=== PATIENT | male | born 1975 | race Caucasian/White ===

== ENCOUNTER → 2019-03-08 | Outpatient (REF) | payer OTHER | LOC: M LAB REF 12:42 | PROVIDERS: ATTEND Physician Assistant Medical | DX: J02.9 Acute pharyngitis, unspecified (principal) ==

== ENCOUNTER → 2020-03-04 | Outpatient (CLI) | payer OTHER ==
[~2020-03-04] MED LIST: METHACHOLINE KIT (J7674) INH ONE
--- NOTE | 2020-03-04 08:35 | PFTRPT ---
Height: 72.00 Inches Weight: 220.00 Lbs BSA: 2.22 Diagnosis: J45.990 DATE: 03/04/2020 ORDERED BY: Dr. Alex. QUALITY: Study of excellent technical quality. PROCEDURE: Under protocol, methacholine was administered. At a dose of 2.5 mg or 13.875 CDUs a 29% decline in the FEV1 was noted. PC of 0.42 is significant. Flow rates did return to baseline post bronchodilator administration. IMPRESSION: Positive methacholine challenge study. MTDD
== END ==
LOC: M CARPUL 07:45
PROVIDERS: ATTEND Internal Medicine
DX: J45.990 Exercise induced bronchospasm (principal)

== ENCOUNTER → 2020-04-26 | Outpatient (CLI) | payer OTHER ==
[~2020-04-26] MED LIST changes: +CITA20TA7; -METHACHOLINE KIT (J7674) INH ONE; +PROAAER10; +RABE1TAB4
== END ==
LOC: M LABSMTC 10:36
PROVIDERS: ATTEND Anesthesiology
DX: Z01.812 Encounter for preprocedural laboratory examination (principal); Z20.822 Contact with and (suspected) exposure to COVID-19

== ENCOUNTER 2020-05-01 07:05 | Day surgery (SDC) | payer OTHER ==
[~2020-05-01] VITALS: Ht 185.4 cm; Wt 104.3 kg
[~2020-05-01 07:05] MED LIST changes: +LIDOCAINE 2% 100MG/5ML SDV (FOR ANES.) As Ordered ONE; +NS 1,000 ML IV ONE; +RABE1TAB; -RABE1TAB4; +propofoL 200 MG/20 ML VIAL As Ordered ONE
--- OUTSIDE RECORDS SUMMARY | 2020-05-01 07:09 | CCD | Continuity of Care Document ---
Author Sanket Haro M.D. Organization Unknown Address [address] [place] [id number] Phone [phone] Care Team Providers Care Automatic Stacker Name Role Phone Eva Alex DO AUTM [phone] Problems Active Problems Provider Date Gastroesophageal reflux disease Diego Delaney M.D. Ons et: 04/16/2020 Social History Type Date Description Comments Sex Unknown ETOH Use Occasionally Tobacco Use Start: Unknown Patient has never smoked Allergies, Adverse Reactions, Alerts Description No Known Drug Allergies Medications Active Medications SIG Qnty Indications Ordering Provide r Date Rabeprazole Sodium 20mg Tablets DR Take One Tablet By Mouth Every Day Unknown Citalopram Hydrobromide 20mg Table ts Take One Tablet By Mouth Every Day Unknown Immunizations Description No Information Available Vital Signs Date Vital Result Comment 04/16/2020 3:15pm Height 72 inches 6'0" Weight 234.00 lb BP Systolic 135 mmHg BP Diastolic 89 mmHg Heart Rate 66 /min BMI (Body Mass Index) 31.7 kg/m2 Weight 106.142 kg Body Temperature 97.0 F Results Description No Information Available Procedures Description No Information Available Medical Devices Description No Information Available Encounters Type Date Location Provider Dx Diagnosis Office Visit 04/16/2020 3:00p Main Office Diego Delaney M.D. R 12 Heartburn Assessments Date Code Description Provider 04/16/2020 R12 Heartburn Diego wolfe M.D. Plan of Treatment Future Appointment(s):* 04/24/2020 6:45 am - [facility] at Main Office * 05/01/2020 9:00 am - Diego Delaney M.D. at Main Office 04/16/2020 - Diego Delaney M.D.* R12 Heartburn* Comments:* 44 yo wm who presents for a chronic history of heartburn. No dysphagia. Pt is on Acidphex 20 mgs po qd. No c/o abdominal pain, weight loss, change in bowel habits, or rectal bleeding. No family h/o colon cancer. No h/o chest pain, or sob. Plan:1. Egd + biopsies.2. Informed consent. Functional Status Description No Information Available Mental Status Description No Information Available Referrals Description No Information Available
--- OUTSIDE RECORDS SUMMARY | 2020-05-01 07:09 | CCD | Continuity of Care Document ---
Author Author Sanket DELANEY M.D. Organization Unknown Address [address] [place] [id number] Phone [phone] Care Team Providers Care Dowel Inspector Name Role Phone Eva Alex DO AUTM [phone] Problems Active Problems Provider Date Gastroesophageal reflux [...] Medical Devices Description No Information Available Encounters Description No Information Available Assessments Date Code Description Provider 04/16/2020 R12 [...]
--- OUTSIDE RECORDS SUMMARY | 2020-05-01 07:10 | CCD ---
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 [employer] Name Role Phone Abi, Eva DO Unavailable Unavailable Abi, Eva DO Unavailable Unavailable Abi, Eva DO Unavailable Unavailable Abi, Eva DO Unavailable Unavailable Abi, Eva DO Unavailable Unavailable Abi, Eva DO Unavailable Unavailable Abi, Eva DO Unavailable Unavailable Abi, Eva DO Unavailable Unavailable Abi, Eva DO Unavailable Unavailable Abi, Eva DO Unavailable Unavailable Abi, Eva DO Unavailable Unavailable Abi, Eva DO Unavailable Unavailable Abi, Eva DO Unavailable Unavailable Abi, Eva DO Unavailable Unavailable Abi, Eva DO Unavailable Unavailable Abi, Eva DO Unavailable Unavailable Abi, Eva DO Unavailable Unavailable Abi, Eva DO Unavailable Unavailable Abi, Eva DO Unavailable Unavailable Abi, Eva DO Unavailable Unavailable Abi, Eva DO Unavailable Unavailable Abi, Eva DO Unavailable Unavailable Abi, Eva DO Unavailable Unavailable Abi, Eva DO Unavailable Unavailable Abi, Eva DO Unavailable Unavailable Abi, Eva DO Unavailable Unavailable Abi, Eva DO Unavailable Unavailable Abi, Eva DO Unavailable Unavailable Abi, Eva DO Unavailable Unavailable Abi, Eva DO Unavailable Unavailable Abi, Eva DO Unavailable Unavailable Abi, Eva DO Unavailable Unavailable Abi, Eva DO Unavailable Unavailable Abi, Eva DO Unavailable Unavailable Abi, Eva DO Unavailable Unavailable Abi, Eva DO Unavailable Unavailable Abi, Eva DO Unavailable Unavailable Abi, Eva DO Unavailable Unavailable Abi, Eva DO Unavailable Unavailable Abi, Eva DO Unavailable Unavailable Abi, Eva DO Unavailable Unavailable Abi, Eva DO Unavailable Unavailable Abi, Eva DO Unavailable Unavailable Abi, Eva DO Unavailable Unavailable Abi, Eva DO Unavailable Unavailable Abi, Eva DO Unavailable Unavailable Abi, Eva DO Unavailable Unavailable Abi, Eva DO Unavailable Unavailable Abi, Eva DO Unavailable Unavailable Abi, Eva DO Unavailable Unavailable Abi, Eva DO Unavailable Unavailable Abi, Eva DO Unavailable Unavailable Abi, Eva DO Unavailable Unavailable Abi, Eva DO Unavailable Unavailable Abi, Eva DO Unavailable Unavailable Abi, Eva DO Unavailable Unavailable Abi, Eva DO Unavailable Unavailable Abi, Eva DO Unavailable Unavailable Abi, Eva DO Unavailable Unavailable Abi, Eva DO Unavailable Unavailable Abi, Eva DO Unavailable Unavailable Abi, Eva DO Unavailable Unavailable Abi, Eva DO Unavailable Unavailable Abi, Eva DO Unavailable Unavailable Abi, Eva DO Unavailable Unavailable Abi, Eva DO Unavailable Unavailable Abi, Eva DO Unavailable Unavailable Abi, Eva DO Unavailable Unavailable Abi, Eva DO Unavailable Unavailable Abi, Eva DO Unavailable Unavailable Abi, Eva DO Unavailable Unavailable Abi, Eva DO Unavailable Unavailable Sundar Delaney MD Unavailable Unavailable Sundar Delaney MD Unavailable Unavailable Sundar Delaney MD Unavailable Unavailable Sundar Delaney MD Unavailable Unavailable Sundar Delaney MD Unavailable Unavailable Sundar Delaney MD Unavailable Unavailable Sundar Delaney MD Unavailable Unavailable Sundar Delaney MD Unavailable Unavailable Sundar Delaney MD Unavailable Unavailable Sundar Delaney MD Unavailable Unavailable Sundar Delaney MD Unavailable Unavailable Sundar Delaney MD Unavailable Unavailable RhettSundar MD Unavailable Unavailable Rhett S Diego QUILES Unavailable Unavailable Rhett S Diego QUILES Unavailable Unavailable Rhett S Diego QUILES Unavailable Unavailable Rhett S Diego QUILES Unavailable Unavailable Rhett S Diego QUILES Unavailable Unavailable Rhett S Diego QUILES Unavailable Unavailable RhettSundar MD Unavailable Unavailable Rhett S Diego QUILES Unavailable Unavailable RhettSundar MD Unavailable Unavailable RhettSundar MD Unavailable Unavailable RhettSundar MD Unavailable Unavailable Sundar Delaney MD Unavailable Unavailable RhettSundar MD Unavailable Unavailable RhettSundar MD Unavailable Unavailable Rhett S Diego QUILES Unavailable Unavailable Rhett S Diego MD Unavailable Unavailable Rhett, S Diego MD Unavailable Unavailable Rhett, S Diego MD Unavailable Unavailable Rhett, S Diego MD Unavailable Unavailable Rhett, S Diego MD Unavailable Unavailable Rhett, S Diego MD Unavailable Unavailable Rhett, S Diego MD Unavailable Unavailable Rhett, S Diego MD Unavailable Unavailable Rhett, S Diego MD Unavailable Unavailable Rhett, S Diego MD Unavailable Unavailable Rhett, S Diego MD Unavailable Unavailable Rhett, S Diego MD Unavailable Unavailable Rhett, S Diego MD Unavailable Unavailable Rhett, S Diego MD Unavailable Unavailable Rhett, S Diego MD Unavailable Unavailable Rhett, S Diego MD Unavailable Unavailable Rhett, S Diego MD Unavailable Unavailable Rhett, S Diego MD Unavailable Unavailable Rhett, S Diego MD Unavailable Unavailable Rhett, S Diego MD Unavailable Unavailable Spearance, J Adam PA Unavailable Unavailable Spearance, J Adam PA Unavailable Unavailable Spearance, J Adam PA Unavailable Unavailable Spearance, J Adam PA Unavailable Unavailable Spearance, J Adam PA Unavailable Unavailable Spearance, J Adam PA Unavailable Unavailable Spearance, J Adam PA Unavailable Unavailable Spearance, J Adam PA Unavailable Unavailable Spearance, J Adam PA Unavailable Unavailable Spearance, J Adam PA Unavailable Unavailable Spearance, J Adam PA Unavailable Unavailable Spearance, J Adam PA Unavailable Unavailable Spearance, J Adam PA Unavailable Unavailable Spearance, J Adam PA Unavailable Unavailable Spearance, J Adam PA Unavailable Unavailable Spearance, J Adam PA Unavailable Unavailable Spearance, J Adam PA Unavailable Unavailable Spearance, J Adam PA Unavailable Unavailable Spearance, J Adam PA Unavailable Unavailable Spearance, J Adam PA Unavailable Unavailable Rodriguez, Odalis SURVEY MANAGER Unavailable Unavailable Rodriguez, Odalis SURVEY MANAGER Unavailable Unavailable Rodriguez, Odalis SURVEY MANAGER Unavailable Unavailable Rodriguez, Odalis SURVEY MANAGER Unavailable Unavailable Rodriguez, Odalis SURVEY MANAGER Unavailable Unavailable Rodriguez, Odalis SURVEY MANAGER Unavailable Unavailable Rodriguez, Odalis SURVEY MANAGER Unavailable Unavailable Rodriguez, Odalis SURVEY MANAGER Unavailable Unavailable Rodriguez, Odalis SURVEY MANAGER Unavailable Unavailable Rodriguez, Odalis SURVEY MANAGER Unavailable Unavailable Rodriguez, Odalis SURVEY MANAGER Unavailable Unavailable Re-disclosure Warning The records that you are about to access may contain information from federally-assisted alcohol or drug abuse programs. If such information is present, then the following federally mandated warning applies: This information has been disclosed to you from records protected by federal confidentiality rules (42 CFR part 2). The federal rules prohibit you from making any further disclosure of this information unless further disclosure is expressly permitted by the written consent of the person to whom it pertains or as otherwise permitted by 42 CFR part 2. A general authorization for the release of medical or other information is NOT sufficient for this purpose. The Federal rules restrict any use of the information to criminally investigate or prosecute any alcohol or drug abuse patient.The records that you are about to access may contain highly sensitive health information, the redisclosure of which is protected by Article 27-F of the [facility] Public Health law. If you continue you may have access to information: Regarding HIV / AIDS; Provided by facilities licensed or operated by the [facility] Office of Mental Health; or Provided by the [facility] Office for People With Developmental Disabilities. If such information is present, then the following [facility] mandated warning applies: This information has been disclosed to you from confidential records which are protected by state law. State law prohibits you from making any further disclosure of this information without the specific written consent of the person to whom it pertains, or as otherwise permitted by law. Any unauthorized further disclosure in violation of state law may result in a fine or nursing home sentence or both. A general authorization for the release of medical or other information is NOT sufficient authorization for further disc losure. Family History Family Member Name Family Member Gender Family Member Status Date o f Status Description Data Source(s) Unknown Unknown Problem [facility] ([facility] Unknown Female Problem [facility] ([facility]) Encounters Encounter Providers Location Date Indications Data Source(s ) Outpatient Attender: Diego Delaney MD Main Office 04/16/2020 02:00:00 PM EST [facility] ([facility]) Outpatient Attender: Eva Morelos 02/15 08:40:00 AM EST [facility] ([facility] ) Outpatient Attender: Odalis parker 04/28/2019 04:00:00 PM EST [facility] ([facility]) Outpatient Attender: Adam parker 03/08/2019 04:45:00 PM EST [facility] ([facility]) Immunizations Vaccine Date Status Description Data Source(s) Influenza, injectable, MDCK, preservative free, doug valent 02/16/2020 08:41:00 AM EST completed [facility]) Medications Medication Brand Name Start Date Product Form Dose Route Admi nistrative Instructions Pharmacy Instructions Status Indications Reaction Description Data Source(s) Citalopram 20 MG Oral Tablet CITALOPRAM HYDROBROMIDE 02/28/2020 12:00:00 AM EST tablet 90 TAKE ONE TABLET BY MOUTH EVERY D AY TAKE ONE TABLET BY MOUTH EVERY DAY SOLD: 03/01/2020 [facility] 20 mg 02/17/2020 12:00:00 AM EST tablet,delayed release (DR/EC) 90 TAKE ONE TABLET BY MOUTH EVERY DAY TAKE ONE TABLET BY MOUTH EVERY DAY SOLD: 02/17/2020 [facility] 1 gram 02/17/2020 12:00:00 AM EST tablet 21 TAKE ONE TABLET BY MOUTH DAILY WITH OUTBREAK TAKE ONE TABLET BY MOUTH DAILY WITH OUTBREAK SOLD: 02/17/2020 [facility] 160-4.5 mcg/actuation 02/17/2020 12:00:00 AM EST HFA aerosol inhaler 10 INHALE TWO PUFFS BY MOUTH TWICE A DAY NEEDED FOR COUGH OR SHORTNESS OF BREATH INHALE TWO PUFFS BY MOUTH TWICE A DAY NEEDED FOR COUGH OR SHORTNESS OF BREATH SOLD: 02/17/2020 [facility] 25 mg 02/17/2020 12:00:00 AM EST capsule 30 TAKE ONE CAPSULE BY MOUTH AT BEDTIME NEEDED FOR SLEEP TAKE ONE CAPSULE BY MOUTH AT BEDTIME NEEDED FOR SLEEP SOLD: 02/17/2020 [facility] 90 mcg/actuation 02/17/2020 12:00:00 AM EST HFA aerosol inha ler 17 INHALE TWO PUFFS BY MOUTH FOUR TIMES A DAY NEEDED INHALE TWO PUFFS BY MOUTH FOUR TIMES A DAY NEEDED SOLD: 02/17/2020 [facility] 50 mg 02/16/2020 12:00:00 AM EST tablet 6 TAKE ONE TO TWO TABLETS BY MOUTH ONE HOUR BEFORE ACTIVITY TAKE ONE TO TWO TABLETS BY MOUTH ONE MICHELLE R BEFORE ACTIVITY SOLD: 02/16/2020 [facility] 200 ACTUAT Albuterol 0.09 MG/ACTUAT Metered Dose Inhaler [Pr oAir] Proair HFA 02/16/2020 12:00:00 AM EST RESPIRATORY active [facility] ([facility]) 60 ACTUAT Budesonide 0.16 MG/ACTUAT / fo rmoterol fumarate 0.0045 MG/ACTUAT Metered Dose Inhaler [Symbicort] Symbicort 02/16/2020 12:00:00 AM EST RESPIRATORY active [facility] ( [facility]) Immunization Adminstration,1 Vaccine/Toxoid 02/16/2020 12:00 :00 AM EST completed [facility] ([facility]) Medication administered onsite Hydroxyzine Pamoate 25 MG Oral Capsule Hydroxyzine Pamoate 1 04/17/2019 12:00:00 AM EST ORAL active [facility] ([facility]) Amoxicillin 875 MG / Clavulanate 125 MG Oral Tablet Am oxicillin/Clavulanate Potassium 04/28/2019 12:00:00 AM EST ORAL active [facility] ([facility]) 90 mcg/actuation 04/28/2019 12:00:00 AM EST HFA aerosol inha ler 8 INHALE 1-2 PUFFS BY MOUTH EVERY 4 TO 6 HOURS NEEDED SHORTNESS OF BREATH INHALE 1-2 PUFFS BY MOUTH EVERY 4 TO 6 HOURS NEEDED SHORTNESS OF BREATH SOLD: 04/28/2019 [facility] Prednisone 20 MG Oral Tablet Prednisone 04/28/2019 12:00:00 AM EST active [facility] ([facility]) 875-125 mg 04/28/2019 12:00:00 AM EST tablet 20 TAKE ONE TABLET BY MOUTH TWICE A DAY FOR 10 DAYS TAKE ONE TABLET BY MOUTH TWICE A DAY FOR 10 DAYS SOLD: 04/28/2019 [facility] 60 ACTUAT Albuterol 0.09 MG/ACTUAT Metered Dose Inhaler Albu terol Sulfate HFA 04/28/2019 12:00:00 AM EST RESPIRATORY active [facility] ([facility]) 20 mg 04/28/2019 12:00:00 AM EST tablet 8 TAKE ONE TABLET BY MOUTH TWICE A DAY FOR 4 DAYS TAKE ONE TABLET BY MOUTH TWICE A DAY FOR 4 DAYS SOLD: 2019 [facility] 20 mg 04/07/2019 12:00:00 AM EST tablet 30 TAKE ONE TABLET BY MOUTH EVERY DAY TAKE ONE TABLET BY MOUTH EVERY DAY SOLD: 10/18/2019 [facility] 20 mg 04/07/2019 12:00:00 AM EST tablet 30 TAKE ONE TABLET BY MOUTH EVERY DAY TAKE ONE TABLET BY MOUTH EVERY DAY SOLD: 07/31/2019 [facility] 20 mg 04/07/2019 12:00:00 AM EST tablet 30 TAKE ONE TABLET BY MOUTH EVERY DAY TAKE ONE TABLET BY MOUTH EVERY DAY SOLD: 06/19/2019 [facility] 20 mg 04/07/2019 12:00:00 AM EST tablet 30 TAKE ONE TABLET BY MOUTH EVERY DAY TAKE ONE TABLET BY MOUTH EVERY DAY SOLD: 05/17/2019 [facility] 20 mg 04/07/2019 12:00:00 AM EST tablet 30 TAKE ONE TABLET BY MOUTH EVERY DAY TAKE ONE TABLET BY MOUTH EVERY DAY SOLD: 12/25/2019 [facility] 20 mg 04/07/2019 12:00:00 AM EST tablet 30 TAKE ONE TABLET BY MOUTH EVERY DAY TAKE ONE TABLET BY MOUTH EVERY DAY SOLD: 04/10/2019 [facility] 20 mg 04/07/2019 12:00:00 AM EST tablet 30 TAKE ONE TABLET BY MOUTH EVERY DAY TAKE ONE TABLET BY MOUTH EVERY DAY SOLD: 09/06/2019 [facility] 20 mg 04/07/2019 12:00:00 AM EST tablet 30 TAKE ONE TABLET BY MOUTH EVERY DAY TAKE ONE TABLET BY MOUTH EVERY DAY SOLD: 01/26/2020 [facility] 20 mg 04/07/2019 12:00:00 AM EST tablet 30 TAKE ONE TABLET BY MOUTH EVERY DAY TAKE ONE TABLET BY MOUTH EVERY DAY SOLD: 11/24/2019 [facility] 875 mg 03/10/2019 12:00:00 AM EST tablet 20 TAKE ONE TABLET BY MOUTH TWICE A DAY FOR 10 DAYS TAKE ONE TABLET BY MOUTH TWICE A DAY FOR 10 DAYS SOLD: 03/10/2019 [facility] Amoxicillin 875 MG Oral Tablet Amoxicillin 03/10/2019 12:00:00 AM EST ORAL completed [facility] ([facility]) 20 mg 02/21/2019 12:00:00 AM EST tablet,delayed release (DR/EC) 90 TAKE ONE TABLET BY MOUTH EVERY DAY TAKE ONE TABLET BY MOUTH EVERY DAY SOLD: 05/17/2019 [facility] 20 mg 02/21/2019 12:00:00 AM EST tablet,delayed release (DR/EC) 90 TAKE ONE TABLET BY MOUTH EVERY DAY TAKE ONE TABLET BY MOUTH EVERY DAY SOLD: 08/18/2019 [facility] 20 mg 02/21/2019 12:00:00 AM EST tablet,delayed release (DR/EC) 90 TAKE ONE TABLET BY MOUTH EVERY DAY TAKE ONE TABLET BY MOUTH EVERY DAY SOLD: 11/15/2019 [facility] 50 mg 02/20/2019 12:00:00 AM EST tablet 6 TAKE 1 TO 2 TABLETS BY MOUTH 1 HOUR BEFORE ACTIVITY TAKE 1 TO 2 TABLETS BY MOUTH 1 HOUR BEFORE ACTIVITY SO LD: 12/06/2019 [facility] Insurance Providers Payer name Policy type / Coverage type Policy ID Covered democrat ID Covered democrat's relationship to prabhakar Policy Prabhakar Plan Information [facility] [id number] [facility] [id number] MV Commercial [id number] Self [id number] MV Commercial [id number] Self [id number] ID IDENTIFICATION [id number] In surance [id number] MVP [id number] Commercial Insurance [id number] MVP/Preferred Care Commercial [id number] Family Dependent [id number] MVP Commercial [id number] Family Dependent [id number] MVP/Preferred Care Commercial Family Dependent MVP Commercial Family Dependent Problems, Conditions, and Diagnoses Code Display Name Description Problem Type Effective Dates Data Source(s) [id number] Gastroesophageal reflux disease Gastroesophageal reflux disease Problem 04/16/2020 12:00:00 AM EST [facility] ([facility]) Results ID Date Data Source [id number] 04/26/2020 10:00:00 AM EST [facility] Name Value Range Interpretation Code Description Data Latasha rce(s) Supporting Document(s) SARS coronavirus 2 RNA Not Detected [facility] This lab was ordered by [facility] and reported by [facility]. ID Date Data Source [id number] 02/16/2020 10:08:00 AM EST [facility] ([facility]) Name Value Range Interpretation Code Description Data Latasha rce(s) Supporting Document(s) Thyrotropin [Units/volume] in Serum or Plasma by Detec tion limit <= 0.05 mIU/L 2.01 uIU/mL 0.36-3.74 [facility] ([facility] ) ID Date Data Source [id number] 02/16/2020 10:08:00 AM EST [facility] ([facility]) Name Value Range Interpretation Code Description Data Latasha rce(s) Supporting Document(s) Triglyceride [Mass/volume] in Serum or Plasma 50 mg/dL 30-150 [facility] ([facility]) Cholesterol in HDL [Mass/volume] in Serum or Plasma 56 mg/dL 35-60 [facility] ([facility]) Cholesterol [Mass/volume] in Serum or Plasma 203 mg/dL 131-200 [facility] ([facility]) Cholesterol in LDL [Mass/volume] in Serum or Plasma by calcu lation 137 CALC 50-159 [facility] ([facility]) ID Date Data Source [id number] 02/16/2020 10:08:00 AM EST [facility] ([facility]) Name Value Range Interpretation Code Description Data Latasha rce(s) Supporting Document(s) Urea nitrogen [Mass/volume] in Serum or Plasma 13 mg/dL 7-18 [facility] ([facility]) Creatinine 1.1 mg/dL 0.6-1.3 [facility] Glucose [Mass/volume] in Serum or Plasma 90 mg/dL 74-99 [facility] ([facility]) 100-125 mg/dL PRE-DIABETES/FASTING >126 mg/dL DIABETES/FASTING Sodium [Moles/volume] in Serum or Plasma 141 meq/L 136-145 [facility] ([facility]) Potassium [Moles/volume] in Serum or Plasma 4.2 meq/L 3.5-5.1 [facility] ([facility]) Chloride [Moles/volume] in Serum or Plasma 104 meq/L 98-107 [facility] ([facility]) Alkaline phosphatase isoenzyme [Units/volume] in Serum or Pl asma 73 mg/dL 46-116 [facility] ([facility]) Total Bilirubin 0.8 mg/dL 0.2-1.0 [facility] ([facility]) Carbon dioxide, total [Moles/volume] in Serum or Plasma 32 meq/L 21 -32 [facility] ([facility]) Calcium [Mass/volume] in Serum or Plasma 8.7 mg/dL 8.5-10.1 [facility] ([facility]) Aspartate aminotransferase [Enzymatic activity/volume] in Serum or Plasma 19 U/L 15-37 [facility] ([facility] ) Albumin [Mass/volume] in Serum or Plasma 4.0 g/dL 3.4-5.0 [facility] ([facility]) Alanine aminotransferase [Enzymatic activity/volume] in Seru m or Plasma 20 U/L 12-78 [facility] ([facility]) Proteinase 3 Ab [Units/volume] in Serum 7.3 g/dL 6.4-8.2 [facility] ([facility]) Glomerular filtration rate/1.73 sq M pre dicted among non-blacks [Volume Rate/Area] in Serum or Plasma by Creatinine-based formula (MDRD) Laboratory test result [facility] A/G Ratio 1.21 CALC 1.00-1.90 [facility]) Glomerular filtration rate/1.73 sq M pre dicted among blacks [Volume Rate/Area] in Serum or Plasma by Creatinine-based formula (MDRD) Laboratory test result [facility] <content>CHRONIC KIDNEY DISEASE STAGING PER NKF</content>
<content></content>
<content>STAGE I & II GFR >= 60 NORMAL TO MILDLY DECREASED</content>
<content>STAGE III GFR 30-59 MODERATELY DECREASED</content>
<content>STAGE IV GFR 15-29 SEVERELY DECREASED</content>
<content>STAGE V GFR <15 VERY LITTLE GFR LEFT</content>
<content>ESRD GFR <15 ON PATIENT CARE COORDINATOR</content>
<content></content> ID Date Data Source [id number] 02/16/2020 10:08:00 AM EST [facility] ([facility]) Name Value Range Interpretation Code Description Data Latasha rce(s) Supporting Document(s) Leukocytes [#/volume] in Blood by Automated count 5.6 x10*3/UL 4.1-10 .9 [facility] ([facility]) Erythrocytes [#/volume] in Blood by Automated count 4.53 x10*6/UL 4.2 0-6.30 [facility] ([facility] Hemoglobin [Mass/volume] in Blood 14.4 g/dL 12.0-18.0 [facility] ([facility]) MCH 31.9 pg 26.0-32.0 [facility] ([facility]) MCV 90.4 fL 80.0-97.0 [facility] ([facility]) Hematocrit [Volume Fraction] of Blood by Automated count 40.9 % 3 7.0-51.0 [facility] MCHC 35.3 g/dL 31.0-38.0 [facility] ([facility]) Erythrocyte distribution width [Ratio] by Automated count 12.6 % 11.6-13.7 [facility] ([facility] Platelets [#/volume] in Blood by Automated count 234 x10*3/UL 140-440 [facility] Mid % 5.3 % 1.7-9.3 [facility] ([facility]) MPV 8.9 FL 7.8-11.0 [facility] ([facility]) Lymph % 19.3 % 10.0-58.5 [facility] ([facility]) Mid # 0.3 x10*3/UL 0.1-0.6 [facility] ([facility]) Neut % 75.4 % 37.0-92.0 [facility] ([facility]) Lymph # 1.1 x10*3/UL 0.6-4.1 [facility] ([facility]) Neut # 4.2 x10*3/UL 2.0-7.8 [facility] ([facility]) ID Date Data Source [id number] 03/08/2019 06:14:00 PM EST [facility] ([facility]) Name Value Range Interpretation Code Description Data Latasha rce(s) Supporting Document(s) Group A Strep Culture FULL REPORT IN L <SEE NOTE> [facility] ([facility]) Start amoxicillin. Procedure Vital Signs ID Date Data Source UNK Name Value Range Interpretation Code Description Data Source(s) Body temperature 97.0 [degF] 97.0 [degF] [facility] ([facility]) Body weight 106.142 kg 106.142 kg [facility] Body mass index (BMI) [Ratio] 31.7 kg/m2 31.7 k g/m2 [facility] ([facility]) Heart rate 66 /min 66 /min [facility] ([facility]) Diastolic blood pressure 89 mm[Hg] 89 mm[Hg] [facility] ([facility]) Systolic blood pressure 135 mm[Hg] 135 mm[Hg] M EDENT ([facility]) Body weight 234.00 [lb_av] 234.00 [lb_av] MED[facility] T ([facility]) Body height 72 [in_i] 72 [in_i] [facility] 6'0" Body mass index (BMI) [Ratio] 29.8 kg/m2 29.8 k g/m2 [facility] ([facility]) Body weight 226.00 [lb_av] 226.00 [lb_av] [facility] T ([facility]) Body height 73 [in_i] 73 [in_i] [facility] ([facility]) 6'1" Heart rate 56 /min 56 /min [facility] ([facility]) Diastolic blood pressure 70 mm[Hg] 70 mm[Hg] [facility] ([facility]) RT Arm Systolic blood pressure 106 mm[Hg] 106 mm[facility]Hg] [facility] RT Arm Body mass index (BMI) [Ratio] 29.7 kg/m2 29.7 k g/m2 [facility] ([facility]) Body height 73 [in_i] 73 [in_i] [facility] ([facility]) 6'1" Body weight 225.00 [lb_av] 225.00 [lb_av] MED[facility] T ([facility]) Body temperature 98.5 [degF] 98.5 [degF] [facility] ([facility]) Oxygen saturation in Arterial blood by Pulse oximetry 99 % 99 % [facility] ([facility]) Respiratory rate 16 /min 16 /min [facility] ( [facility]) Heart rate 78 /min 78 /min [facility] ([facility], [facility]) Diastolic blood pressure 75 mm[Hg] 75 mm[Hg] [facility] ([facility]) Systolic blood pressure 109 mm[Hg] 109 mm[Hg] [facility]) Body mass index (BMI) [Ratio] 29.7 kg/m2 29.7 k g/m2 [facility] ([facility]) Body height 73 [in_i] 73 [in_i] [facility] ([facility], [facility]) Body weight 225.00 [lb_av] 225.00 [lb_av] [facility] ([facility] [facility], [facility]) Body temperature 98.6 [degF] 98.6 [degF] [facility] ([place] [facility], [facility]) Oxygen saturation in Arterial blood by Pulse oximetry 97 % 97 % [facility] ([place] [facility], [facility]) Respiratory rate 16 /min 16 /min [facility] ( [place] [facility], [facility]) Heart rate 66 /min 66 /min [facility] ([facility], [facility]) Diastolic blood pressure 75 mm[Hg] 75 mm[Hg] [facility] ([place] [facility], [facility]) Systolic blood pressure 110 mm[Hg] 110 mm[Hg] [facility] ([place] [facility], [facility])
--- OUTSIDE RECORDS SUMMARY | 2020-05-01 07:10 | CCD | Continuity of Care Document ---
Author Author Sanket AWAD DO Organization Unknown Address [address] [facility] [address] [place] [address] Phone [phone] Care Team Providers Care Chef Under Name Role Phone Eva Awad DO AUTM Unavailable Problems Description No Information Available Social History Type Date Description Comments Sex Unknown Tobacco Use Start: Unknown Patient has never smoked Allergies, Adverse Reactions, Alerts Description No Known Drug Allergies Medications Active Medications SIG Qnty Indications Ordering Provide r Date Hydroxyzine Pamoate 25mg Capsules take 1 capsule by mouth every night at bedtime prn sleep 30caps Eva AwadDO 02/16/2020 Symbicort 160-4.5mcg/Act Aerosol 2 puff twice a day prn cough sob 1units Eva AwadDO 2019 Proair HFA 108(90Base) mcg/Act Aer osol 2 puffs four times a day as needed 17gm Eva Awad DO 02/16/2020 Citalopram Hydrobromide 20mg Table ts 1 by mouth every day 90tabs Eva AwadDO 02/14/[address] 1 by mouth every day 90tabs Eva Awad,DO 02/14/2019 Valtrex 1gm Tablets 1 tab daily with outbreak 21tabs Eva AwadDO 02/14/2019 Viagra 50mg Tablets take 1 to 2 tablets 1 hour before activity 14tabs Eva Awad DO 02/14/2019 Medications Administered in Office Medication SIG Qnty Indications Ordering Provider Date Immunization Adminstration,1 Vaccine/Tox oid Injection Eva Awad DO 02/14/2019 Immunizations CPT Code Status Date Vaccine Lot # [id number] Given 02/16/2020 Influenza Vaccin e Quadrivalent Preser/Antibiotic Free Im Use [id number] Given 02/14/2019 Influenza Vaccin e Quadrivalent Preser/Antibiotic Free Im Use [id number] Vital Signs Date Vital Result Comment 02/16/2020 9:30am BP Systolic 106 mmHg RT Arm BP Diastolic 70 mmHg RT Arm Heart Rate 56 /min Height 73 inches 6'1" Weight 226.00 lb BMI (Body Mass Index) 29.8 kg/m2 02/14/2019 10:27am BP Systolic 110 mmHg BP Diastolic 84 mmHg Heart Rate 59 /min Body Temperature 97.8 F Respiratory Rate 16 /min Height 73 inches 6'1" Weight 236.00 lb O2 % BldC Oximetry 98 % BMI (Body Mass Index) 31.1 kg/m2 Results Description No Information Available Procedures Description No Information Available Medical Devices Description No Information Available Encounters Description No Information Available Assessments Description No Information Available Plan of Treatment 02/14/2019 - Eva Awad DO* Z00.00 Encounter for general adult medical examination without abnormal findings * F41.1 Generalized anxiety disorder * K21.9 Gastro-esophageal reflux disease without esophagitis * Z13.220 Encounter for screening for lipoid disorders * N52.9 Male erectile dysfunction, unspecified * T43.225A Adverse effect of selective serotonin reuptake inhibitors, initial encounter * E66.3 Overweight * Z68.31 Body mass index (BMI) 31.0-31.9, adult * Z23 Encounter for immunization * Z13.89 Encounter for screening for other disorder * All * New Medication:* Citalopram Hydrobromide 20 mg - 1 by mouth every day * Rabeprazole Sodium 20 mg - 1 by mouth every day * Valtrex 1 gm - 1 tab daily with outbreak * Viagra 50 mg - take 1 to 2 tablets 1 hour before activity Functional Status Description No Information Available Mental Status Description No Information Available Referrals Description No Information Available
--- OUTSIDE RECORDS SUMMARY | 2020-05-01 07:10 | CCD | Continuity of Care Document ---
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 Name Role Phone Eva Awad DO AUTM [...] night at bedtime prn sleep 30caps Eva Awad,DO 02/16/2020 Symbicort 160-4.5mcg/Act Aerosol 2 puff twice a day prn cough sob 1units Eva AwadDO 2019 Proair HFA 108(90Base) mcg/Act Aer osol 2 puffs four times a day as needed 17gm Eva AwadDO 02/16/2020 Citalopram Hydrobromide 20mg Table ts 1 by mouth every day 90tabs Eva Awad,DO 02/14/2019 Rabeprazole Sodium 20mg Tablets DR 1 by mouth every day 90tabs Eva Awad,DO 02/14/2019 Valtrex 1gm Tablets 1 tab daily with outbreak 21tabs Eva Awad,DO 02/14/2019 Viagra 50mg Tablets take 1 to 2 tablets 1 hour before activity 14tabs Eva Awad,DO 02/14/2019 Medications Administered in Office Medication SIG Qnty Indications Ordering Provider Date Immunization Adminstration,1 Vaccine/Tox oid Injection Eva AwadDO 02/16/2020 Immunization Adminstration,1 Vaccine/Tox oid Injection Eva AwadDO 02/14/2019 Immunizations CPT Code Status Date Vaccine Lot # [id number] Given 02/16/2020 Influenza Vaccin e Quadrivalent Preser/Antibiotic Free Im Use [id number] Given 02/14/2019 Influenza Vaccin e Quadrivalent Preser/Antibiotic Free Im Use [id number] Vital Signs Date Vital Result Comment 02/16/2020 [...] BMI (Body Mass Index) 31.1 kg/m2 Results Test Acquired Date Facility Test Result H/L Range Note Complete Blood Count 02/16/2020 [facility] Fishing Guide: [place] [address] [phone] WBC 5.6 x10*3/UL 4.1 - 10.9 RBC 4.53 x10*6/UL 4.20 - 6.30 Hemoglobin 14.4 g/dL 12.0 - 18.0 Hematocrit 40.9 % 37.0 - 51.0 MCV 90.4 fL 80.0 - 97.0 MCH 31.9 pg 26.0 - 32.0 MCHC 35.3 g/dL 31.0 - 38.0 RDW 12.6 % 11.6 - 13.7 PLT 234 x10*3/UL 140 - 440 MPV 8.9 FL 7.8 - 11.0 Lymph % 19.3 % 10.0 - 58.5 Mid % 5.3 % 1.7 - 9.3 Neut % 75.4 % 37.0 - 92.0 Lymph # 1.1 x10*3/UL 0.6 - 4.1 Mid # 0.3 x10*3/UL 0.1 - 0.6 Neut # 4.2 x10*3/UL 2.0 - 7.8 Comprehensive Chem Profile 02/16/2020 [facility] Fishing Guide: [place] [address] [phone] Glucose 90 mg/dL 74 - 99 1 BUN 13 mg/dL 7 - 18 Creatinine 1.1 mg/dL 0.6 - 1.3 Sodium 141 mEq/L 136 - 145 Potassium 4.2 mEq/L 3.5 - 5.1 Chloride 104 mEq/L 98 - 107 Carbon Dioxide 32 mEq/L 21 - 32 Calcium 8.7 mg/dL 8.5 - 10.1 Alk. Phosphatase 73 mg/dL 46 - 116 Total Bilirubin 0.8 mg/dL 0.2 - 1.0 Ast (Sgot) 19 U/L 15 - 37 Alt (SGPT) 20 U/L 12 - 78 Albumin 4.0 g/dL 3.4 - 5.0 Total Protein 7.3 g/dL 6.4 - 8.2 A/G Ratio 1.21 CALC 1.00 - 1.90 GFR >= 60 mL/min >60 GFR >= 60 mL/min >60 2 Lipid Profile 02/16/2020 [facility] Fishing Guide: [place] [address] [phone] Cholesterol 203 mg/dL High 131 - 200 Triglycerides 50 mg/dL 30 - 150 HDL Cholesterol 56 mg/dL 35 - 60 LDL (Calculated) 137 CALC 50 - 159 Laboratory test finding 02/16/2020 [facility] Fishing Guide: [place] [address] [phone] Thyroid Stimulating Hormone 2.01 uIU/mL 0.3 6 - 3.74 1 100-125 mg/dL PRE-DIABET ES/FASTING >126 mg/dL DIABETES/FASTING 2 CHRONIC KIDNEY DISEASE STAGI NG PER NKF STAGE I & II GFR >= 60 NORMAL TO MILDLY DECREASED STAGE III GFR 30-59 MODERATELY DECREASED STAGE IV GFR 15-29 SEVERELY DECREASED STAGE V GFR <15 VERY LITTLE GFR LEFT ESRD GFR <15 ON MACHINE SET UP [employer] Procedures Description No Information Available Medical Devices Description No Information Available Encounters Type Date Location Provider Dx Diagnosis Office Visit 02/16/2020 9:40a [facility] DO Z00.00 Encntr for general adult medical exam w/o abnormal findings F41.1 Generalized anxiety disorder F32.9 Major depressive disorder, s lea episode, unspecified K21.9 Gastro-esophageal reflux dis ease without esophagitis N52.9 Male erectile dysfunction, u nspecified J45.990 Exercise induced bronchospas m Z13.220 Encounter for screening for lipoid disorders Z23 Encounter for immunization Assessments Date Code Description Provider 02/16/2020 Z00.00 Encounter for genera l adult medical examination without abnormal findings Eva Awad, 02/16/2020 F41.1 Generalized anxiety disorder Muniz ra Abi,DO 02/16/2020 F32.9 Major depressive disorder, singl e episode, unspecified Eva Awad,DO 02/16/2020 K21.9 Gastro-esophageal reflux disease without esophagitis Eva Awad,DO 02/16/2020 N52.9 Male erectile dysfunction, unspe cified Eva Awad,DO 02/16/2020 J45.990 Exercise induced bronchospasm La hernandez Awad,DO 02/16/2020 Z13.220 Encounter for screening for lipo id disorders Eva Awad, 02/16/2020 Z23 Encounter for immunization Eva Awad DO Plan of Treatment Future Appointment(s):* 02/19/2021 8:00 am - Eva Awad DO at [facility] 02/16/2020 - Eva Awad DO* Z00.00 Encounter for general adult medical examination without abnormal findings * F41.1 Generalized anxiety disorder * F32.9 Major depressive disorder, single episode, unspecified * K21.9 Gastro-esophageal reflux disease without esophagitis * N52.9 Male erectile dysfunction, unspecified * J45.990 Exercise induced bronchospasm * Z13.220 Encounter for screening for lipoid disorders * Z23 Encounter for immunization * All * New Medication:* Hydroxyzine Pamoate 25 mg - take 1 capsule by mouth every night at bedtime prn sleep * Symbicort 160-4.5 mcg/Act - 2 puff twice a day prn cough sob * Proair HFA 108(90 Base) mcg/Act - 2 puffs four times a day as needed Functional Status Description No Information Available Mental Status Description No Information Available Referrals Refer to Reason for Referral Status Appt Date Diego Delaney MD CONSULT FOR SCREENING EGD DX: GERD Patie nt Notified 04/16/2020 [address] [facility] [address] [phone]
--- OUTSIDE RECORDS SUMMARY | 2020-05-01 07:10 | CCD | Continuity of Care Document ---
Author Author Sanket AWAD DO Organization Unknown Address [address] [facility] [address] [place] [address] Phone [phone] Care Team Providers Care Coupon Clerk Name Role Phone Eva Awad DO AUTM [...] CPT Code Status Date Vaccine Lot # [id number] Given 02/16/2020 Influenza Vaccin e Quadrivalent Preser/Antibiotic Free Im Use [id number] Given 02/14/2019 Influenza Vaccin e Quadrivalent Preser/Antibiotic Free Im Use [id number] Vital Signs Date Vital Result Comment 02/16/2020 [...] H/L Range Note Complete Blood Count 02/16/2020 [facility] [employer] [facility] [employer]: [place] [address] [phone] WBC 5.6 x10*3/UL 4.1 - 10.9 RBC [...] 2.0 - 7.8 Comprehensive Chem Profile 02/16/2020 [facility] [employer]: [place] [address] [phone] Glucose 90 mg/dL 74 - 99 1 [...] 60 mL/min >60 2 Lipid Profile 02/16/2020 [facility] [employer]: [place] [address] [phone] Cholesterol 203 mg/dL High 131 - 200 Triglycerides 50 mg/dL 30 - 150 HDL Cholesterol 56 mg/dL 35 - 60 LDL (Calculated) 137 CALC 50 - 159 Laboratory test finding 02/16/2020 [facility] [employer]: [place] [address] [phone] Thyroid Stimulating Hormone 2.01 uIU/mL 0.3 6 - 3.74 1 100-125 mg/dL PRE-DIABET ES/FASTING >126 mg/dL DIABETES/FASTING 2 CHRONIC KIDNEY DISEASE STAGI NG PER NKF STAGE I & II GFR >= 60 NORMAL TO MILDLY DECREASED STAGE III GFR 30-59 MODERATELY DECREASED STAGE IV GFR 15-29 SEVERELY DECREASED STAGE V GFR <15 VERY LITTLE GFR LEFT ESRD 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 Procedures Description No Information Available Medical Devices Description No Information Available Encounters Description No Information Available Assessments Date Code Description Provider 02/16/2020 Z00.00 Encounter for ken salgado adult medical examination without abnormal findings Eva Awad, 02/16/2020 F41.1 Generalized anxiety disorder Flavio Awad,DO 02/16/2020 F32.9 Major depressive disorder, singl e episode, unspecified Eva Awad, 02/16/2020 K21.9 Gastro-esophageal reflux disease without esophagitis Eva Awad DO 02/16/2020 N52.9 Male erectile dysfunction, unspe cified Eva Awad DO 02/16/2020 J45.990 Exercise induced bronchospasm Sherin Awad DO Plan of Treatment Future Appointment(s):* 02/19/2021 8:00 am - Eva Awad DO at [facility] 02/16/2020 - Eva Awad DO* Z00.00 Encounter for general adult medical examination without abnormal findings * F41.1 Generalized anxiety disorder * F32.9 Major depressive disorder, single episode, unspecified * K21.9 Gastro-esophageal reflux disease without esophagitis * N52.9 Male erectile dysfunction, unspecified * J45.990 Exercise induced bronchospasm * All * New Medication:* Hydroxyzine Pamoate [...]
--- NOTE | 2020-05-01 08:32 | ROOR ---
Patient Name: Sanket Villagomez Procedure Date: 05/01/2020 8:10 AM Date of : 1975 Age: 44 Room: [facility] Gender: Male Note Status: Finalized Procedure: Upper Endoscopy + Biopsies Indications: Heartburn, Exclusion of Wilkes's esophagus Providers: Diego Delaney MD Referring MD: Eva Alex DO Requesting Provider: Medicines: Monitored Anesthesia Care Complications: No immediate complications. Procedure: Pre-Anesthesia Assessment: - The heart rate, respiratory rate, oxygen saturations, blood pressure, adequacy of pulmonary ventilation, and response to care were monitored throughout the procedure. The Endoscope was introduced through the mouth, and advanced to the second part of duodenum. The upper GI endoscopy was accomplished without difficulty. The patient tolerated the procedure well. Findings: The Z-line was regular and was found 40 cm from the incisors. Multiple biopsies were obtained with cold forceps for evaluation to rule out Wilkes's Esophagus randomly at the gastroesophageal junction. A medium-sized hiatal hernia was present. No other significant abnormalities were identified in a careful examination of the stomach. The exam of the duodenum was otherwise normal. Impression: - Z-line regular, 40 cm from the incisors. - Medium-sized hiatal hernia. - Multiple biopsies were obtained at the gastroesophageal junction. - The examination was otherwise normal. Recommendation: - Patient has a contact number available for emergencies. The signs and symptoms of potential delayed complications were discussed with the patient. Return to normal activities tomorrow. Written discharge instructions were provided to the patient. - High fiber diet. - Discharge patient to home. - Follow an antireflux regimen. - Continue present medications. - Await pathology results. - Telephone GI clinic for pathology results in 1 week. - Return to referring physician. - Repeat upper endoscopy for surveillance based on pathology results. - The findings and recommendations were discussed with the patient. Procedure Code(s): --- Professional --- 25313, Esophagogastroduodenoscopy, flexible, transoral; with biopsy, single or multiple Diagnosis Code(s): --- Professional --- K44.9, Diaphragmatic hernia without obstruction or gangrene R12, Heartburn CPT copyright 2019 [employer]. All rights reserved. The codes documented in this report are preliminary and upon software client architect review may be revised to meet current compliance requirements. Diego Delaney MD Diego Delaney MD 05/01/2020 8:32:08 AM Electronically signed by Diego Delaney MD Number of Addenda: 0 Note Initiated On: 05/01/2020 8:10 AM Estimated Blood Loss: Estimated blood loss: none.
[2020-05-01 08:45] VITALS: BP 135/89
[2020-05-01] MEDS ORDERED: fentaNYL 100 MCG/2 ML INJECTION (J3010) As Ordered ONE (09:22)
== END 2020-05-01 08:53 | disposition home or self-care (01) ==
LOC: M OPP 07:05
PROVIDERS: ATTEND Internal Medicine Gastroenterology
DX: R12 Heartburn (principal); D13.0 Benign neoplasm of esophagus; K44.9 Diaphragmatic hernia without obstruction or gangrene; F41.9 Anxiety disorder, unspecified; J45.909 Unspecified asthma, uncomplicated; Z79.899 Other long term (current) drug therapy
CPT/HCPCS: 43239; 88305; J3010

== ENCOUNTER → 2022-02-15 | Outpatient (CLI) | payer OTHER ==
[~2022-02-15] MED LIST changes: +ALBU8.5H INH; -LIDOCAINE 2% 100MG/5ML SDV (FOR ANES.) As Ordered ONE; -NS 1,000 ML IV ONE; -RABE1TAB; +RABE1TAB4; -propofoL 200 MG/20 ML VIAL As Ordered ONE
== END ==
LOC: M LABSMTC 10:32
PROVIDERS: ATTEND Anesthesiology
DX: Z01.812 Encounter for preprocedural laboratory examination (principal); Z20.822 Contact with and (suspected) exposure to COVID-19

== ENCOUNTER 2022-02-18 10:09 | Day surgery (SDC) | payer OTHER ==
[~2022-02-18] VITALS: Ht 182.9 cm; Wt 103.0 kg
[~2022-02-18 10:09] MED LIST changes: +NS 1,000 ML IV ONE
[2022-02-18] MEDS ORDERED: propofoL 200 MG/20 ML VIAL As Ordered ONE ×2 (12:14→12:34)
[2022-02-18] MEDS ORDERED: LIDOCAINE 2% 100MG/5ML SDV (FOR ANES.) As Ordered ONE (12:14)
[2022-02-18] MEDS ORDERED: MIDAZOLAM INJ 2MG/2ML VIAL (J2250 PER 1MG) As Ordered ONE (12:15)
[2022-02-18] MEDS ORDERED: flumazeniL 0.5 MG/5 ML VIAL As Ordered ONE (13:01)
[2022-02-18 13:15] VITALS: BP 133/66
== END 2022-02-18 13:30 | disposition home or self-care (01) ==
LOC: M OPP 10:09
PROVIDERS: ATTEND Internal Medicine Gastroenterology
DX: Z12.11 Encounter for screening for malignant neoplasm of colon (principal); K64.8 Other hemorrhoids; K57.30 Diverticulosis of large intestine without perforation or abscess without bleeding; Z79.51 Long term (current) use of inhaled steroids; Z79.899 Other long term (current) drug therapy; K21.9 Gastro-esophageal reflux disease without esophagitis; F41.9 Anxiety disorder, unspecified
CPT/HCPCS: 45378; J2250

== ENCOUNTER → 2022-03-31 | Outpatient (CLI) | payer OTHER ==
[~2022-03-31] MED LIST changes: -NS 1,000 ML IV ONE
== END ==
LOC: M SLEEP 20:00
PROVIDERS: ATTEND Physician Assistant
DX: G47.33 Obstructive sleep apnea (adult) (pediatric) (principal); R40.0 Somnolence

== ENCOUNTER → 2022-05-29 | Outpatient (REF) | payer OTHER ==
[2022-05-29 16:45] LABS: FOLLICLE STIMULATING HORMONE 4.3 mIU/ML (1.4-18.1); LUTEINIZING HORMONE 3.8 mIU/ML (1.5-9.3)
[2022-06-01 23:07] LABS: TESTOSTERONE FREE (DIRECT) 11.8 pg/mL (6.8-21.5)
== END ==
LOC: M LAB REF 15:59
PROVIDERS: ATTEND Internal Medicine
DX: N52.9 Male erectile dysfunction, unspecified (principal)

== ENCOUNTER → 2023-03-08 | Outpatient (REF) | LOC: M EMP 12:58 | PROVIDERS: ATTEND Family Medicine | DX: Z11.52 Encounter for screening for COVID-19 (principal) ==

== ENCOUNTER → 2023-03-11 | Outpatient (REF) | LOC: M EMP 08:55 | PROVIDERS: ATTEND Family Medicine | DX: Z11.52 Encounter for screening for COVID-19 (principal) ==

== ENCOUNTER → 2024-04-27 | Outpatient (CLI) | payer OTHER | LOC: M SLEEP 20:00 | PROVIDERS: ATTEND Physician Assistant | DX: G47.33 Obstructive sleep apnea (adult) (pediatric) (principal) ==

== ENCOUNTER → 2024-06-08 | Outpatient (CLI) | payer OTHER | LOC: M SLEEP 20:00 | PROVIDERS: ATTEND Physician Assistant | DX: G47.33 Obstructive sleep apnea (adult) (pediatric) (principal) ==